=== PATIENT | male | born 1965 | race Two or more races ===

== ENCOUNTER 2022-11-23 16:45 | Inpatient (IN) | payer OTHER ==
[~2022-11-23] VITALS: Ht 182.9 cm; Wt 75.0 kg
[2022-11-23] MEDS ORDERED: MORPHINE SULFATE 4 MG/ML SYR/VIAL IV ONE (18:45)
[2022-11-23] MEDS ORDERED: ONDANSETRON ODT 4 MG TAB PO ONE (18:45)
[2022-11-23] MEDS ORDERED: SODIUM CHLORIDE 0.9% 1,000 ML IV ONE (18:45)
[2022-11-23 19:38] LABS: Basophils # (auto) 0 10 ^3/uL (0-0.2); Eosinophils # (auto) 0 10 ^3/uL (0-0.8); Lymphocytes # (auto) 0.2 10 ^3/uL (0.4-5.4); Mean Corpuscular Hgb Conc. 35.8 g/dL (32.0-36.0); Monocytes # (auto) 0.1 10 ^3/uL (0-1.3); Neutrophils # (auto) 0 10 ^3/uL (1.6-8.6); Red Cell Distribution Width 17.4 % (11.8-14.3)
[2022-11-23 19:39] LABS: Eosinophils % (auto) 0.6 % (0.0-7.0); Hematocrit 19.3 % (41.0-53.0); Mean Corpuscular Hemoglobin 35.5 pg (28.0-32.0); Mean Corpuscular Volume 99.1 fL (80.0-100.0); Neutrophils % (auto) 11.3 % (37.0-80.0); Nucleated Red Blood Cells % 0.3 %; Red Blood Cells 1.95 10^6/uL (4.5-5.90)
[2022-11-23 19:42] LABS: Lymphocytes % (auto) 68.5 % (10.0-50.0); Monocytes % (auto) 19.6 % (0.0-12.0)
[2022-11-23 19:45] LABS: Hemoglobin 6.9 g/dL (13.5-17.5); White Blood Cell 0.3 10^3/uL (4.4-10.8)
[2022-11-23 19:56] LABS: Albumin 2.1 g/dL (3.4-5.0); Calcium 7.9 mg/dL (8.5-10.1); INR 1.08 (0.9-1.15); Partial Thromboplastin Time 31.3 sec (24.6-33.4)
[2022-11-23 19:58] LABS: BUN/Creatinine Ratio 26.9 (10.0-20.0)
[2022-11-23] MEDS ORDERED: ONDANSETRON HCL 4 MG/2 ML VIAL IV ONE (20:00)
[2022-11-23 20:01] LABS: Bilirubin, Total 2.9 mg/dL (0.2-1.0); Total Protein 5.6 g/dL (6.4-8.2)
[2022-11-23 20:35] LABS: Potassium 2.8 mmol/L (3.5-5.1)
[2022-11-23] MEDS ORDERED: SOD CHL 0.9%/ KCL 40MEQ 1,000 ML IV ONE (20:45)
[2022-11-23] MEDS ORDERED: ALBUMIN 25% 100 ML IV ONE (21:15)
[2022-11-23] MEDS ORDERED: IBUPROFEN 600 MG TAB PO PRN (21:15)
[2022-11-23] MEDS ORDERED: DOCUSATE SOD 100 MG CAP PO PRN (21:15)
[2022-11-23] MEDS: MORPHINE SULFATE INJ 2 MG/ml SYRG IV PRN (21:55)
[2022-11-23] MEDS: SODIUM CHLORIDE 0.9% 1,000 ML IV SCH (21:56)
[2022-11-23 22:00] LABS: Urine Bacteria NONE SEEN /hpf (None Seen); Urine Blood Negative /uL (Negative); Urine WBC 1 /hpf (0 - 3)
[2022-11-23] MEDS ORDERED: NITROGLYCERIN 0.4 MG SL TAB SL PRN (23:30)
[2022-11-23] MEDS ORDERED: MORPHINE SULFATE INJ 2 MG/ml SYRG IV PRN (23:30)
[2022-11-24 00:24] VITALS: BP 98/49
[2022-11-24 00:39] VITALS: BP 111/63
[2022-11-24] MEDS: ONDANSETRON HCL 4 MG/2 ML VIAL IV PRN ×3 (02:05→12:26)
[2022-11-24] MEDS: MORPHINE SULFATE INJ 2 MG/ml SYRG IV PRN ×2 (02:06→05:56)
[2022-11-24 03:04] VITALS: BP 91/43
[2022-11-24 05:31] LABS: Basophils # (auto) 0 10 ^3/uL (0-0.2); Basophils % (auto) 0.8 % (0.0-2.0); Eosinophils # (auto) 0 10 ^3/uL (0-0.8); Eosinophils % (auto) 1.4 % (0.0-7.0); Hemoglobin 7.1 g/dL (13.5-17.5); Lymphocytes # (auto) 0.4 10 ^3/uL (0.4-5.4); Mean Corpuscular Hemoglobin 34.7 pg (28.0-32.0); Mean Corpuscular Hgb Conc. 35.6 g/dL (32.0-36.0); Mean Corpuscular Volume 97.3 fL (80.0-100.0); Monocytes # (auto) 0.1 10 ^3/uL (0-1.3); Neutrophils # (auto) 0 10 ^3/uL (1.6-8.6); Neutrophils % (auto) 4.8 % (37.0-80.0); Red Blood Cells 2.05 10^6/uL (4.5-5.90); Red Cell Distribution Width 17.8 % (11.8-14.3)
[2022-11-24 05:33] LABS: Lymphocytes % (auto) 70.4 % (10.0-50.0); Monocytes % (auto) 22.6 % (0.0-12.0)
[2022-11-24 05:37] LABS: White Blood Cell 0.5 10^3/uL (4.4-10.8)
[2022-11-24 05:48] LABS: Albumin 2.3 g/dL (3.4-5.0); Calcium 7.3 mg/dL (8.5-10.1); Potassium 3.1 mmol/L (3.5-5.1)
[2022-11-24 05:51] LABS: BUN/Creatinine Ratio 28.6 (10.0-20.0); Bilirubin, Total 2.2 mg/dL (0.2-1.0); Total Protein 5.1 g/dL (6.4-8.2)
[2022-11-24] MEDS ORDERED: MORPHINE SULFATE 4 MG/ML SYR/VIAL IV PRN (09:00)
[2022-11-24] MEDS: MORPHINE SULFATE 4 MG/ML SYR/VIAL IV PRN ×5 (09:27→22:40)
[2022-11-24] MEDS: FILGRASTIM(TBO) 480 MCG/0.8 ML SYRG SC SCH (09:29)
[2022-11-24] MEDS: SODIUM CHLORIDE 0.9% 1,000 ML IV SCH (14:58)
[2022-11-24 22:00] VITALS: BP 115/67
[2022-11-25] MEDS: ONDANSETRON HCL 4 MG/2 ML VIAL IV PRN ×2 (02:02→06:12)
[2022-11-25] MEDS: MORPHINE SULFATE 4 MG/ML SYR/VIAL IV PRN ×7 (02:12→22:16)
[2022-11-25 05:00] VITALS: BP 114/67
[2022-11-25 05:24] LABS: Hemoglobin 7.8 g/dL (13.5-17.5)
[2022-11-25 05:27] LABS: Hematocrit 21.9 % (41.0-53.0); Mean Corpuscular Hemoglobin 34.6 pg (28.0-32.0); Mean Corpuscular Hgb Conc. 35.7 g/dL (32.0-36.0); Mean Corpuscular Volume 96.8 fL (80.0-100.0); Red Blood Cells 2.26 10^6/uL (4.5-5.90); Red Cell Distribution Width 18.3 % (11.8-14.3)
[2022-11-25 05:34] LABS: Albumin 2.2 g/dL (3.4-5.0); Calcium 7.4 mg/dL (8.5-10.1)
[2022-11-25 05:37] LABS: Bilirubin, Total 2.3 mg/dL (0.2-1.0); Total Protein 5.4 g/dL (6.4-8.2)
[2022-11-25 06:18] LABS: Band Neutrophils % (manual) 0; Basophils % (manual) 0 (0.0-2.0); Blast Cells 0; Metamyelocytes % 0; Myelocytes % 0; Promyelocytes % 0; Reactive Lymphocytes 0
[2022-11-25] MEDS: SODIUM CHLORIDE 0.9% 1,000 ML IV SCH ×2 (06:35→20:49)
[2022-11-25 07:39] LABS: Potassium 2.7 mmol/L (3.5-5.1)
[2022-11-25] MEDS ORDERED: POTASSIUM CHL 20 Meq TABLET PO ONE (08:30)
[2022-11-25 09:00] VITALS: BP 102/54
[2022-11-25] MEDS ORDERED: VANCOMYCIN PER PHARMACY 0 MG IV SCH (09:00)
[2022-11-25 09:13] LABS: Eosinophils % (manual) 6 (0-7); Lymphocytes % (manual) 66 (10.0-50.0); Monocytes % (manual) 16 (0-12)
[2022-11-25] MEDS ORDERED: VANCOMYCIN 1GM/250ML 250 ML IV ONE (09:30)
[2022-11-25] MEDS: FILGRASTIM(TBO) 480 MCG/0.8 ML SYRG SC SCH (09:33)
[2022-11-25 12:34] VITALS: BP 102/53
[2022-11-25] MEDS ORDERED: EMPA1TAB PO (13:08)
[2022-11-25] MEDS ORDERED: LORA-1123 PO (13:08)
[2022-11-25] MEDS ORDERED: OXY5T PO (13:08)
[2022-11-25] MEDS ORDERED: METR-344 PO (13:08)
[2022-11-25] MEDS ORDERED: CEFU500T43 PO (13:08)
[2022-11-25] MEDS ORDERED: SODIGRA31 PO (13:08)
[2022-11-25] MEDS ORDERED: ZOFR4T PO (13:08)
[2022-11-25] MEDS ORDERED: GASTROGRAFIN 30 ML SOL ONE (13:51)
[2022-11-25] MEDS: CEFEPIME 1GM/ 50ML 50 ML IV SCH ×2 (15:11→22:16)
[2022-11-25 17:16] VITALS: BP 102/45
[2022-11-25] MEDS ORDERED: IOHEXOL 300 MG/ML 100ML BOTTLE IJ ONE (17:52)
[2022-11-25] MEDS: VANCOMYCIN 1GM/250ML 250 ML IV SCH (20:49)
[2022-11-25 22:00] VITALS: BP 100/55
[2022-11-26] MEDS: MORPHINE SULFATE 4 MG/ML SYR/VIAL IV PRN ×5 (01:16→20:48)
[2022-11-26 05:00] VITALS: BP 93/56
[2022-11-26 05:23] LABS: Calcium 7.2 mg/dL (8.5-10.1)
[2022-11-26 05:25] LABS: BUN/Creatinine Ratio 13.6 (10.0-20.0)
[2022-11-26 05:32] LABS: White Blood Cell 5.1 10^3/uL (4.4-10.8)
[2022-11-26 05:38] LABS: Hematocrit 25.4 % (41.0-53.0); Hemoglobin 9.2 g/dL (13.5-17.5); Mean Corpuscular Hemoglobin 34.8 pg (28.0-32.0); Mean Corpuscular Hgb Conc. 36.1 g/dL (32.0-36.0); Mean Corpuscular Volume 96.4 fL (80.0-100.0); Red Blood Cells 2.63 10^6/uL (4.5-5.90); Red Cell Distribution Width 18.2 % (11.8-14.3)
[2022-11-26] MEDS: CEFEPIME 1GM/ 50ML 50 ML IV SCH ×3 (05:41→20:48)
[2022-11-26 05:55] LABS: Basophils % (manual) 0 (0.0-2.0); Blast Cells 0; Eosinophils % (manual) 0 (0-7); Metamyelocytes % 0; Myelocytes % 0; Promyelocytes % 0; Reactive Lymphocytes 0
[2022-11-26 06:23] LABS: Potassium 2.5 mmol/L (3.5-5.1)
[2022-11-26] MEDS ORDERED: POTASSIUM CHL 20 Meq TABLET PO ONE (07:00)
[2022-11-26] MEDS ORDERED: POTASSIUM CHL 20MEQ/100ML 100 ML IV ONE (07:00)
[2022-11-26 08:20] LABS: Band Neutrophils % (manual) 13; Lymphocytes % (manual) 8 (10.0-50.0); Monocytes % (manual) 12 (0-12)
[2022-11-26] MEDS ORDERED: HYDROcodone-ACET 5/325MG TAB PO PRN (08:30)
[2022-11-26] MEDS: VANCOMYCIN 1GM/250ML 250 ML IV SCH (08:58)
[2022-11-26] MEDS: FILGRASTIM(TBO) 480 MCG/0.8 ML SYRG SC SCH (08:59)
[2022-11-26 09:06] VITALS: BP 98/67
[2022-11-26 12:34] VITALS: BP 96/76
[2022-11-26 13:48] VITALS: BP 80/44
[2022-11-26] MEDS: SODIUM CHLORIDE 0.9% 1,000 ML IV SCH ×2 (14:00→21:53)
[2022-11-26 16:45] VITALS: BP 93/59
[2022-11-26 21:42] VITALS: BP 100/65
[2022-11-27] MEDS: MORPHINE SULFATE 4 MG/ML SYR/VIAL IV PRN ×7 (00:11→22:44)
[2022-11-27 04:49] LABS: Basophils % (manual) 0 (0.0-2.0); Blast Cells 0; Eosinophils % (manual) 0 (0-7); Promyelocytes % 0; Reactive Lymphocytes 0
[2022-11-27 04:53] LABS: Hematocrit 28.6 % (41.0-53.0); Hemoglobin 9.9 g/dL (13.5-17.5); Mean Corpuscular Hemoglobin 33.8 pg (28.0-32.0); Mean Corpuscular Hgb Conc. 34.5 g/dL (32.0-36.0); Mean Corpuscular Volume 97.9 fL (80.0-100.0); Red Blood Cells 2.92 10^6/uL (4.5-5.90); Red Cell Distribution Width 18.8 % (11.8-14.3); White Blood Cell 25.4 10^3/uL (4.4-10.8)
[2022-11-27 05:00] VITALS: BP 116/70
[2022-11-27 05:14] LABS: BUN/Creatinine Ratio 13.2 (10.0-20.0); Calcium 7.5 mg/dL (8.5-10.1); Potassium 3.1 mmol/L (3.5-5.1)
[2022-11-27 05:18] LABS: Magnesium 0.7 mg/dL (1.6-2.6)
[2022-11-27 05:33] LABS: Band Neutrophils % (manual) 14; Lymphocytes % (manual) 8 (10.0-50.0); Metamyelocytes % 2; Monocytes % (manual) 5 (0-12); Myelocytes % 4
[2022-11-27] MEDS: CEFEPIME 1GM/ 50ML 50 ML IV SCH ×3 (06:05→21:33)
[2022-11-27] MEDS: SODIUM CHLORIDE 0.9% 1,000 ML IV SCH ×2 (06:06→15:55)
[2022-11-27] MEDS ORDERED: POTASSIUM CHL 20 Meq TABLET PO ONE (08:45)
[2022-11-27] MEDS: MAGNESIUM SULFATE 1GM/100ML 100 ML IV SCH ×2 (09:20→12:18)
[2022-11-27 12:00] VITALS: BP 127/72
[2022-11-27] MEDS: MAGNESIUM OXIDE 400 MG TAB PO SCH ×2 (12:24→21:33)
[2022-11-27 16:00] VITALS: BP 148/77
[2022-11-27 22:00] VITALS: BP 137/77
[2022-11-28] MEDS: MORPHINE SULFATE 4 MG/ML SYR/VIAL IV PRN ×7 (01:55→21:15)
[2022-11-28 05:00] VITALS: BP 138/89
[2022-11-28] MEDS: CEFEPIME 1GM/ 50ML 50 ML IV SCH ×3 (05:02→21:15)
[2022-11-28] MEDS: SODIUM CHLORIDE 0.9% 1,000 ML IV SCH ×2 (05:04→16:00)
[2022-11-28 06:35] LABS: Calcium 7.6 mg/dL (8.5-10.1); Magnesium 1.4 mg/dL (1.6-2.6); Potassium 3.2 mmol/L (3.5-5.1)
[2022-11-28 06:38] LABS: BUN/Creatinine Ratio 19.1 (10.0-20.0); Hematocrit 27.5 % (41.0-53.0); Hemoglobin 9.4 g/dL (13.5-17.5); Mean Corpuscular Hemoglobin 33.7 pg (28.0-32.0); Mean Corpuscular Hgb Conc. 34.3 g/dL (32.0-36.0); Mean Corpuscular Volume 98.2 fL (80.0-100.0)
[2022-11-28 07:09] LABS: White Blood Cell 38.9 10^3/uL (4.4-10.8)
[2022-11-28 07:11] LABS: Basophils % (manual) 0 (0.0-2.0); Eosinophils % (manual) 0 (0-7); Metamyelocytes % 0; Myelocytes % 0; Promyelocytes % 0; Reactive Lymphocytes 0
[2022-11-28 07:56] LABS: Band Neutrophils % (manual) 9; Blast Cells 1; Lymphocytes % (manual) 10 (10.0-50.0); Monocytes % (manual) 11 (0-12)
[2022-11-28] MEDS: MAGNESIUM OXIDE 400 MG TAB PO SCH ×2 (08:28→21:15)
[2022-11-28] MEDS ORDERED: POTASSIUM CHL 20 Meq TABLET PO ONE (08:30)
[2022-11-28] MEDS: MAGNESIUM SULFATE 1GM/100ML 100 ML IV SCH ×2 (08:45→11:42)
[2022-11-28 12:00] VITALS: BP 134/79
[2022-11-28 16:00] VITALS: BP 138/74
[2022-11-29] VITALS (7 sets, daily range): BP systolic 113–155; BP diastolic 69–82
[2022-11-29] MEDS: MORPHINE SULFATE 4 MG/ML SYR/VIAL IV PRN ×6 (00:14→15:51)
[2022-11-29] MEDS: SODIUM CHLORIDE 0.9% 1,000 ML IV SCH ×3 (01:21→21:47)
[2022-11-29 05:57] LABS: Calcium 7.6 mg/dL (8.5-10.1); Magnesium 1.7 mg/dL (1.6-2.6); Potassium 3.6 mmol/L (3.5-5.1)
[2022-11-29] MEDS: CEFEPIME 1GM/ 50ML 50 ML IV SCH ×3 (06:07→21:45)
[2022-11-29 06:19] LABS: Hemoglobin 9.5 g/dL (13.5-17.5)
[2022-11-29 06:22] LABS: Red Blood Cells 2.79 10^6/uL (4.5-5.90); Red Cell Distribution Width 19.6 % (11.8-14.3)
[2022-11-29 07:08] LABS: White Blood Cell 38.8 10^3/uL (4.4-10.8)
[2022-11-29 07:09] LABS: Basophils % (manual) 0 (0.0-2.0); Blast Cells 0; Eosinophils % (manual) 0 (0-7); Metamyelocytes % 0; Monocytes % (manual) 0 (0-12); Myelocytes % 0; Promyelocytes % 0; Reactive Lymphocytes 0
[2022-11-29 08:51] LABS: Band Neutrophils % (manual) 9; Lymphocytes % (manual) 19 (10.0-50.0)
[2022-11-29] MEDS ORDERED: MAGN400T40 PO (10:33)
[2022-11-29] MEDS ORDERED: PERCOT PO (10:33)
[2022-11-29] MEDS ORDERED: MORP-110 PO (10:33)
[2022-11-29] MEDS ORDERED: POTA1TAB4 PO (10:33)
[2022-11-29] MEDS ORDERED: SODIGRA31 PO (10:33)
[2022-11-29] MEDS: MAGNESIUM OXIDE 400 MG TAB PO SCH ×2 (11:04→21:43)
[2022-11-29] MEDS ORDERED: MORPHINE SULFATE 10 MG/5 ML ORAL SOLN PO PRN (19:00)
[2022-11-29] MEDS: MORPHINE SULF 30 mg ER tab PO SCH (19:07)
[2022-11-29] MEDS: OXYCODONE W/ ACETAMINOPHEN 5/325MG TABLET PO PRN ×2 (19:47→23:50)
[2022-11-29] MEDS: ONDANSETRON HCL 4 MG/2 ML VIAL IV PRN (19:54)
[2022-11-29] MEDS ORDERED: MORPHINE SULF 30 mg ER tab PO SCH (22:00)
[2022-11-30] VITALS (8 sets, daily range): BP systolic 101–123; BP diastolic 62–76
[2022-11-30] MEDS: OXYCODONE W/ ACETAMINOPHEN 5/325MG TABLET PO PRN ×5 (04:00→22:31)
[2022-11-30] MEDS: CEFEPIME 1GM/ 50ML 50 ML IV SCH ×3 (05:59→22:31)
[2022-11-30] MEDS: MORPHINE SULF 30 mg ER tab PO SCH ×2 (06:56→18:54)
[2022-11-30] MEDS: SODIUM CHLORIDE 0.9% 1,000 ML IV SCH ×2 (08:00→18:15)
[2022-11-30] MEDS: ONDANSETRON HCL 4 MG/2 ML VIAL IV PRN ×4 (08:22→23:47)
[2022-11-30] MEDS: MAGNESIUM OXIDE 400 MG TAB PO SCH ×2 (11:06→22:31)
[2022-12-01] MEDS: OXYCODONE W/ ACETAMINOPHEN 5/325MG TABLET PO PRN ×2 (02:21→08:25)
[2022-12-01] MEDS: SODIUM CHLORIDE 0.9% 1,000 ML IV SCH (04:00)
[2022-12-01] MEDS: CEFEPIME 1GM/ 50ML 50 ML IV SCH ×2 (04:58→07:09)
[2022-12-01 05:00] VITALS: BP 117/64
[2022-12-01] MEDS: MORPHINE SULF 30 mg ER tab PO SCH (07:09)
[2022-12-01 08:00] VITALS: BP 144/86
[2022-12-01] MEDS: ONDANSETRON HCL 4 MG/2 ML VIAL IV PRN (09:12)
[2022-12-01 09:18] LABS: Hematocrit 27.7 % (41.0-53.0); Hemoglobin 9.5 g/dL (13.5-17.5); Mean Corpuscular Hemoglobin 33.6 pg (28.0-32.0); Mean Corpuscular Hgb Conc. 34.3 g/dL (32.0-36.0); Mean Corpuscular Volume 97.9 fL (80.0-100.0); Red Blood Cells 2.84 10^6/uL (4.5-5.90)
[2022-12-01 09:24] LABS: White Blood Cell 38.5 10^3/uL (4.4-10.8)
[2022-12-01 09:25] LABS: Basophils % (manual) 0 (0.0-2.0); Blast Cells 0; Eosinophils % (manual) 0 (0-7); Metamyelocytes % 0; Myelocytes % 0; Promyelocytes % 0; Reactive Lymphocytes 0
[2022-12-01 09:43] LABS: Albumin 1.9 g/dL (3.4-5.0); Calcium 7.5 mg/dL (8.5-10.1); Magnesium 1.7 mg/dL (1.6-2.6); Potassium 3.5 mmol/L (3.5-5.1)
[2022-12-01 09:48] LABS: BUN/Creatinine Ratio 32.7 (10.0-20.0); Bilirubin, Total 1.8 mg/dL (0.2-1.0)
[2022-12-01] MEDS: MAGNESIUM OXIDE 400 MG TAB PO SCH (09:54)
[2022-12-01 10:00] LABS: Band Neutrophils % (manual) 13; Lymphocytes % (manual) 3 (10.0-50.0); Monocytes % (manual) 4 (0-12)
[2022-12-01] MEDS ORDERED: SODIUM CHLORIDE 1 GM TAB PO ONE (10:00)
== END 2022-12-01 10:35 | disposition home health service (06) | DRG 808 ==
LOC: EDBD 16:45 → ER 16:45 → TELE 23:19 → TELE-CENTR 11-24 22:18
PROVIDERS: ADMIT Nurse Practitioner Family; ATTEND Internal Medicine Geriatric Medicine
PROC: 30233N1 Transfusion of Nonautologous Red Blood Cells into Peripheral Vein, Percutaneous Approach (ICD-10-PCS; principal; 2022-11-24)
DX: D61.818 Other pancytopenia (principal); E43 Unspecified severe protein-calorie malnutrition; C23 Malignant neoplasm of gallbladder; E87.1 Hypo-osmolality and hyponatremia; E11.9 Type 2 diabetes mellitus without complications; E87.6 Hypokalemia; G89.3 Neoplasm related pain (acute) (chronic); R26.81 Unsteadiness on feet; R79.89 Other specified abnormal findings of blood chemistry; E86.0 Dehydration; R50.81 Fever presenting with conditions classified elsewhere; Z85.51 Personal history of malignant neoplasm of bladder; Z85.09 Personal history of malignant neoplasm of other digestive organs; Z68.21 Body mass index [BMI] 21.0-21.9, adult; Z92.21 Personal history of antineoplastic chemotherapy; D70.9 Neutropenia, unspecified
CPT/HCPCS: 36415; 36430; 70450; 71045; 74177; 80048; 80053; 81001; 83735; 83880; 84484; 85007; 85025; 85027; 85045; 85610; 85730; 86850; 86900; 86901; 86920; 87040; 87081; 93005; 96361; 96374; 96375; 97110; 97116; G0378; J1447; J2405; J3480; P9047

== ENCOUNTER 2022-12-04 18:37 | Inpatient (IN) | payer OTHER ==
[~2022-12-04] VITALS: Ht 185.4 cm; Wt 86.4 kg
[~2022-12-04 18:37] MED LIST: CEFU500T43 PO; EMPA1TAB PO; LORA-1123 PO; MAGN400T40 PO; METR-344 PO; MORP-110 PO; OXY5T PO; PERCOT PO; POTA1TAB4 PO; SODIGRA31 PO; ZOFR4T PO
[2022-12-04] MEDS ORDERED: SODIUM CHLORIDE 0.9% 1,000 ML IV ONE (18:45)
[2022-12-04] MEDS ORDERED: NALOXONE HCL 1MG/ML 2ML SYRINGE IV ONE (18:45)
[2022-12-04 19:14] LABS: Hematocrit 28.1 % (41.0-53.0); Hemoglobin 9.4 g/dL (13.5-17.5); Mean Corpuscular Hemoglobin 33.6 pg (28.0-32.0); Mean Corpuscular Hgb Conc. 33.4 g/dL (32.0-36.0); Mean Corpuscular Volume 100.7 fL (80.0-100.0); Red Blood Cells 2.79 10^6/uL (4.5-5.90); Red Cell Distribution Width 19.9 % (11.8-14.3); White Blood Cell 28.6 10^3/uL (4.4-10.8)
[2022-12-04 19:29] LABS: Basophils % (manual) 0 (0.0-2.0); Blast Cells 0; Eosinophils % (manual) 0 (0-7); Metamyelocytes % 0; Myelocytes % 0; Promyelocytes % 0; Reactive Lymphocytes 0
[2022-12-04 19:35] LABS: Albumin 1.5 g/dL (3.4-5.0); Anion Gap 13 (5-15); Blood Urea Nitrogen 60 mg/dL (7-18); Calcium 7.2 mg/dL (8.5-10.1); Carbon Dioxide 27 mmol/L (21-32); Chloride 86 mmol/L (98-107); Glucose 257 mg/dL (74-106); Magnesium 3.1 mg/dL (1.6-2.6); Potassium 4.8 mmol/L (3.5-5.1); Sodium 126 mmol/L (136-145)
[2022-12-04 19:40] LABS: Alanine Aminotransferase 80 U/L (16-61); Alkaline Phosphatase 681 U/L (45-117); Aspartate Aminotransferase 198 U/L (15-37); Bilirubin, Total 6.4 mg/dL (0.2-1.0); Blood Alcohol < 3.0 mg/dL (0-5); GFR African American 31 mL/min; GFR Non-African American 26 mL/min; Total Protein 3.9 g/dL (6.4-8.2)
[2022-12-04 19:48] LABS: Band Neutrophils % (manual) 18; Lymphocytes % (manual) 4 (10.0-50.0); Monocytes % (manual) 2 (0-12)
[2022-12-04] MEDS ORDERED: NOREPINEPHRINE 8 MG/250ML KIT 250 ML IV ONE (19:49)
[2022-12-04] MEDS: NOREPINEPHRINE 8 MG/250ML KIT 250 ML IV SCH (19:55)
[2022-12-04] MEDS ORDERED: PIPERACILLIN-TAZOB 3.375GM 100 ML IV ONE (20:00)
[2022-12-04 20:21] LABS: INR 1.2 (0.9-1.15); Partial Thromboplastin Time 34.3 sec (24.6-33.4)
[2022-12-04 20:42] LABS: Lactic Acid w/Reflex 7.6 mmol/L (0.4-2.0)
[2022-12-04] MEDS ORDERED: SODIUM CHLORIDE 0.9% 2,000 ML IV ONE (21:30)
[2022-12-04] MEDS ORDERED: CLINDAMYCIN 900MG IV 50 ML IV ONE (22:00)
[2022-12-04] MEDS ORDERED: IOHEXOL 350 MG/ML 100ML IJ ONE (22:42)
[2022-12-04 23:13] LABS: Urine Amorphous Crystal FEW /hpf (None Seen); Urine Bacteria NONE SEEN /hpf (None Seen); Urine Blood 2+ /uL (Negative); Urine Specific Gravity 1.024 (1.001-1.035); Urine WBC 35 /hpf (0 - 3); Urine WBC Clumps PRESENT /hpf (None Seen)
[2022-12-04 23:27] LABS: Alcohol, Urine < 3.0 mg/dL (0-10); Amphetamine Screen, Urine NEGATIVE (NEGATIVE); Barbiturate Scree,Urine NEGATIVE (NEGATIVE); Benzodiazephine Screen, Urine NEGATIVE (NEGATIVE); Cannabinoid Screen, Urine POSITIVE (NEGATIVE); Cocaine Screen, Urine NEGATIVE (NEGATIVE)
[2022-12-04 23:35] LABS: Opiate Scree,Urine POSITIVE (NEGATIVE); Phencyclidine Screen, Urine NEGATIVE (NEGATIVE)
[2022-12-05] VITALS (11 sets, daily range): BP systolic 91–109; BP diastolic 57–70
[2022-12-05] MEDS ORDERED: SODIUM CHLORIDE 0.9% 1,000 ML IV SCH (06:15)
[2022-12-05] MEDS ORDERED: NITROGLYCERIN 0.4 MG SL TAB SL PRN (06:15)
[2022-12-05] MEDS ORDERED: MORPHINE SULFATE INJ 2 MG/ml SYRG IV PRN (06:15)
[2022-12-05] MEDS ORDERED: DEXTROSE (50%) 50ML SYRG IV PRN (06:30)
[2022-12-05] MEDS ORDERED: cefTRIAXone 1GM/50ML D5W 50 ML IV SCH (07:00)
[2022-12-05] MEDS: ALBUMIN 25% 50 ML IV SCH ×2 (07:47→14:51)
[2022-12-05] MEDS ORDERED: AZITHROMYCIN 500MG/ 250ML 250 ML IV SCH (08:00)
[2022-12-05] MEDS: LACTULOSE 20Gm/30ML SOLN PO SCH ×2 (10:47→22:00)
[2022-12-05] MEDS: ACCU-CHEK COMFORT CURVE STRIP VI SCH ×2 (11:53→18:54)
[2022-12-05] MEDS: InsuLIN REG 1unit/0.01ml Soln (100units/ml) SC SCH ×2 (11:59→18:53)
[2022-12-05] MEDS: Ensure HIGH Protein Chocolate 8oz Bottle PO SCH ×2 (13:08→19:55)
[2022-12-05] MEDS: NOREPINEPHRINE 8 MG/250ML KIT 250 ML IV SCH (14:52)
[2022-12-05] MEDS ORDERED: CEFEPIME 2 GM in SODIUM CHL 0.9% 50 ML IV SCH (16:00)
[2022-12-05] MEDS: CEFEPIME 2GM/50ML NS 50 ML IV SCH (16:22)
[2022-12-05] MEDS: FUROSEMIDE 40 MG/4 ML VIAL IV SCH (18:53)
[2022-12-05] MEDS: LINEZOLID 600MG/300ML 300 ML IV SCH (20:40)
[2022-12-06] VITALS (95 sets, daily range): BP systolic 83–113; BP diastolic 42–75
[2022-12-06] MEDS: ALBUMIN 25% 50 ML IV SCH (01:26)
[2022-12-06] MEDS ORDERED: ALBUMIN 25% 50 ML IV ONE (01:26)
[2022-12-06] MEDS: ACCU-CHEK COMFORT CURVE STRIP VI SCH ×4 (01:27→18:05)
[2022-12-06] MEDS: InsuLIN REG 1unit/0.01ml Soln (100units/ml) SC SCH ×4 (01:44→18:14)
[2022-12-06] MEDS: CEFEPIME 2GM/50ML NS 50 ML IV SCH ×2 (01:54→17:00)
[2022-12-06 04:38] LABS: Hematocrit 26.2 % (41.0-53.0); Hemoglobin 9.2 g/dL (13.5-17.5); Mean Corpuscular Hemoglobin 34.2 pg (28.0-32.0)
[2022-12-06 04:40] LABS: Mean Corpuscular Hgb Conc. 35.2 g/dL (32.0-36.0); Mean Corpuscular Volume 97.2 fL (80.0-100.0); Red Blood Cells 2.69 10^6/uL (4.5-5.90); Red Cell Distribution Width 19.3 % (11.8-14.3); White Blood Cell 13.7 10^3/uL (4.4-10.8)
[2022-12-06 04:50] LABS: Basophils % (manual) 0 (0.0-2.0); Blast Cells 0; Eosinophils % (manual) 0 (0-7); Metamyelocytes % 0; Promyelocytes % 0; Reactive Lymphocytes 0
[2022-12-06 04:52] LABS: Calcium 7.1 mg/dL (8.5-10.1); Magnesium 2.8 mg/dL (1.6-2.6); Potassium 4.7 mmol/L (3.5-5.1)
[2022-12-06 04:55] LABS: Bilirubin, Total 7.8 mg/dL (0.2-1.0); Total Protein 4.7 g/dL (6.4-8.2)
[2022-12-06] MEDS: LINEZOLID 600MG/300ML 300 ML IV SCH ×2 (05:58→18:12)
[2022-12-06] MEDS: Ensure HIGH Protein Chocolate 8oz Bottle PO SCH ×3 (08:00→18:00)
[2022-12-06] MEDS ORDERED: SODIUM CHLORIDE 0.9% 500 ML IV ONE (08:15)
[2022-12-06] MEDS: FUROSEMIDE 40 MG/4 ML VIAL IV SCH (09:02)
[2022-12-06] MEDS: LACTULOSE 20Gm/30ML SOLN PO SCH ×2 (09:02→22:09)
[2022-12-06] MEDS: SODIUM CHLORIDE 0.9% 1,000 ML IV SCH ×2 (09:06→16:15)
[2022-12-06 09:43] LABS: Band Neutrophils % (manual) 2; Lymphocytes % (manual) 9 (10.0-50.0); Monocytes % (manual) 5 (0-12); Myelocytes % 1
[2022-12-06] MEDS: OCTREOTIDE ACETATE 100 MCG/ML VL SUBCUT SCH ×2 (13:10→22:10)
[2022-12-06] MEDS: ONDANSETRON HCL 4 MG/2 ML VIAL IV PRN ×2 (13:10→22:10)
[2022-12-06] MEDS: NOREPINEPHRINE 8 MG/250ML KIT 250 ML IV SCH (18:05)
[2022-12-06] MEDS: MORPHINE SULFATE INJ 2 MG/ml SYRG IV PRN (18:29)
[2022-12-07] VITALS (86 sets, daily range): BP systolic 77–136; BP diastolic 45–81
[2022-12-07] MEDS: SODIUM CHLORIDE 0.9% 1,000 ML IV SCH ×2 (00:39→12:13)
[2022-12-07] MEDS: MORPHINE SULFATE INJ 2 MG/ml SYRG IV PRN ×2 (00:40→22:20)
[2022-12-07] MEDS: LINEZOLID 600MG/300ML 300 ML IV SCH ×2 (03:47→16:23)
[2022-12-07 04:34] LABS: Hematocrit 25.2 % (41.0-53.0); Hemoglobin 8.7 g/dL (13.5-17.5); Mean Corpuscular Hemoglobin 33.8 pg (28.0-32.0); Mean Corpuscular Hgb Conc. 34.4 g/dL (32.0-36.0); Mean Corpuscular Volume 98.4 fL (80.0-100.0); Red Blood Cells 2.56 10^6/uL (4.5-5.90); Red Cell Distribution Width 19.6 % (11.8-14.3); White Blood Cell 19.8 10^3/uL (4.4-10.8)
[2022-12-07 04:46] LABS: Basophils % (manual) 0 (0.0-2.0); Blast Cells 0; Eosinophils % (manual) 0 (0-7); Myelocytes % 0; Promyelocytes % 0; Reactive Lymphocytes 0
[2022-12-07 04:49] LABS: INR 1.4 (0.9-1.15)
[2022-12-07] MEDS: CEFEPIME 2GM/50ML NS 50 ML IV SCH ×2 (05:53→20:00)
[2022-12-07] MEDS: ACCU-CHEK COMFORT CURVE STRIP VI SCH ×5 (05:56→23:48)
[2022-12-07] MEDS: OCTREOTIDE ACETATE 100 MCG/ML VL SUBCUT SCH ×3 (05:56→22:20)
[2022-12-07] MEDS: InsuLIN REG 1unit/0.01ml Soln (100units/ml) SC SCH ×5 (06:01→23:48)
[2022-12-07 07:59] LABS: Albumin 1.6 g/dL (3.4-5.0); BUN/Creatinine Ratio 21.4 (10.0-20.0); Bilirubin, Total 8.8 mg/dL (0.2-1.0); Calcium 7.3 mg/dL (8.5-10.1); Magnesium 2.8 mg/dL (1.6-2.6); Total Protein 4.8 g/dL (6.4-8.2)
[2022-12-07 08:03] LABS: Band Neutrophils % (manual) 11; Lymphocytes % (manual) 5 (10.0-50.0); Metamyelocytes % 1; Monocytes % (manual) 5 (0-12)
[2022-12-07] MEDS: LACTULOSE 20Gm/30ML SOLN PO SCH ×2 (08:24→22:20)
[2022-12-07] MEDS: FUROSEMIDE 40 MG/4 ML VIAL IV SCH (08:25)
[2022-12-07] MEDS: ONDANSETRON HCL 4 MG/2 ML VIAL IV PRN (08:25)
[2022-12-07 09:59] LABS: Protein, Urine 329.3 mg/dL (0.0-11.9)
[2022-12-07] MEDS: ALBUMIN 25% 50 ML IV SCH ×2 (11:56→20:53)
[2022-12-07] MEDS: Glucerna Carbsteady SHAKE Vanilla 8oz PO SCH ×2 (13:26→18:31)
[2022-12-07] MEDS: NOREPINEPHRINE 8 MG/250ML KIT 250 ML IV SCH (14:15)
[2022-12-07] MEDS: DOPamine 1600MCG/ML D5W 250 ML IV SCH (14:16)
[2022-12-07] MEDS: SODIUM CHLORIDE 1 GM TAB PO SCH ×2 (14:32→22:20)
[2022-12-07] MEDS: FUROSEMIDE INJECTION 100 MG in SODIUM CHL 0.9% 100 ML IV SCH ×3 (14:33→23:01)
[2022-12-08] VITALS (96 sets, daily range): BP systolic 79–117; BP diastolic 48–73
[2022-12-08] MEDS: MORPHINE SULFATE INJ 2 MG/ml SYRG IV PRN (03:11)
[2022-12-08 03:51] LABS: Hematocrit 25.2 % (41.0-53.0); Hemoglobin 8.6 g/dL (13.5-17.5); Mean Corpuscular Hemoglobin 33.8 pg (28.0-32.0); Mean Corpuscular Hgb Conc. 34.1 g/dL (32.0-36.0); Mean Corpuscular Volume 99.1 fL (80.0-100.0); Red Blood Cells 2.55 10^6/uL (4.5-5.90); Red Cell Distribution Width 19.8 % (11.8-14.3); White Blood Cell 19.8 10^3/uL (4.4-10.8)
[2022-12-08 04:07] LABS: INR 1.44 (0.9-1.15); Potassium 4.8 mmol/L (3.5-5.1)
[2022-12-08 04:12] LABS: Albumin 1.9 g/dL (3.4-5.0); BUN/Creatinine Ratio 20.9 (10.0-20.0); Bilirubin, Total 9.8 mg/dL (0.2-1.0); Calcium 7.3 mg/dL (8.5-10.1); Magnesium 2.9 mg/dL (1.6-2.6); Total Protein 4.8 g/dL (6.4-8.2)
[2022-12-08 04:41] LABS: Basophils % (manual) 0 (0.0-2.0); Blast Cells 0; Eosinophils % (manual) 0 (0-7); Metamyelocytes % 0; Myelocytes % 0; Promyelocytes % 0; Reactive Lymphocytes 0
[2022-12-08] MEDS: ALBUMIN 25% 50 ML IV SCH (05:11)
[2022-12-08] MEDS: ACCU-CHEK COMFORT CURVE STRIP VI SCH ×4 (05:51→23:37)
[2022-12-08] MEDS: ONDANSETRON HCL 4 MG/2 ML VIAL IV PRN ×3 (05:52→21:28)
[2022-12-08] MEDS: InsuLIN REG 1unit/0.01ml Soln (100units/ml) SC SCH ×4 (05:52→23:36)
[2022-12-08] MEDS: LINEZOLID 600MG/300ML 300 ML IV SCH ×2 (05:53→16:05)
[2022-12-08] MEDS: OCTREOTIDE ACETATE 100 MCG/ML VL SUBCUT SCH ×3 (05:53→21:28)
[2022-12-08] MEDS: SODIUM CHLORIDE 1 GM TAB PO SCH ×3 (05:53→21:29)
[2022-12-08] MEDS: NOREPINEPHRINE 8 MG/250ML KIT 250 ML IV SCH (06:58)
[2022-12-08] MEDS: Glucerna Carbsteady SHAKE Vanilla 8oz PO SCH ×3 (08:20→18:00)
[2022-12-08] MEDS: CEFEPIME 2GM/50ML NS 50 ML IV SCH ×2 (08:20→20:00)
[2022-12-08] MEDS: FUROSEMIDE INJECTION 100 MG in SODIUM CHL 0.9% 100 ML IV SCH ×2 (08:31→16:05)
[2022-12-08] MEDS: LACTULOSE 20Gm/30ML SOLN PO SCH ×2 (08:35→21:28)
[2022-12-08 09:30] LABS: Band Neutrophils % (manual) 8; Lymphocytes % (manual) 12 (10.0-50.0); Monocytes % (manual) 3 (0-12)
[2022-12-08] MEDS ORDERED: HYDROmorphone HCL 2 MG/ML VL/or syr IV PRN (10:00)
[2022-12-08] MEDS: MORPHINE SULF 30 mg ER tab PO SCH ×2 (10:00→21:29)
[2022-12-08] MEDS: DOPamine 1600MCG/ML D5W 250 ML IV SCH (13:45)
[2022-12-09] VITALS (89 sets, daily range): BP systolic 70–141; BP diastolic 16–65
[2022-12-09] MEDS: NOREPINEPHRINE 8 MG/250ML KIT 250 ML IV SCH ×4 (01:35→21:24)
[2022-12-09] MEDS: DOPamine 1600MCG/ML D5W 250 ML IV SCH (01:37)
[2022-12-09] MEDS: FUROSEMIDE INJECTION 100 MG in SODIUM CHL 0.9% 100 ML IV SCH ×2 (02:56→13:35)
[2022-12-09 04:18] LABS: Albumin 1.7 g/dL (3.4-5.0); BUN/Creatinine Ratio 20.4 (10.0-20.0); Calcium 7.5 mg/dL (8.5-10.1); Magnesium 2.5 mg/dL (1.6-2.6)
[2022-12-09 04:21] LABS: Bilirubin, Total 11.1 mg/dL (0.2-1.0); Total Protein 4.8 g/dL (6.4-8.2)
[2022-12-09 05:06] LABS: Hematocrit 32.1 % (41.0-53.0); Hemoglobin 10.8 g/dL (13.5-17.5); Mean Corpuscular Hemoglobin 33.6 pg (28.0-32.0); Mean Corpuscular Hgb Conc. 33.5 g/dL (32.0-36.0); Red Blood Cells 3.21 10^6/uL (4.5-5.90); Red Cell Distribution Width 19.6 % (11.8-14.3); White Blood Cell 18.1 10^3/uL (4.4-10.8)
[2022-12-09 05:10] LABS: Basophils % (manual) 0 (0.0-2.0); Blast Cells 0; Eosinophils % (manual) 0 (0-7); Promyelocytes % 0; Reactive Lymphocytes 0
[2022-12-09] MEDS: InsuLIN REG 1unit/0.01ml Soln (100units/ml) SC SCH ×4 (06:00→21:24)
[2022-12-09] MEDS: ONDANSETRON HCL 4 MG/2 ML VIAL IV PRN ×2 (06:07→09:57)
[2022-12-09] MEDS: LINEZOLID 600MG/300ML 300 ML IV SCH (06:08)
[2022-12-09] MEDS: SODIUM CHLORIDE 1 GM TAB PO SCH (06:08)
[2022-12-09] MEDS: OCTREOTIDE ACETATE 100 MCG/ML VL SUBCUT SCH ×3 (06:08→22:32)
[2022-12-09] MEDS: ACCU-CHEK COMFORT CURVE STRIP VI SCH ×4 (06:13→21:24)
[2022-12-09] MEDS: CEFEPIME 2GM/50ML NS 50 ML IV SCH (08:07)
[2022-12-09 08:13] LABS: Band Neutrophils % (manual) 15; Lymphocytes % (manual) 2 (10.0-50.0); Metamyelocytes % 2; Monocytes % (manual) 7 (0-12); Myelocytes % 2
[2022-12-09] MEDS: Glucerna Carbsteady SHAKE Vanilla 8oz PO SCH ×3 (09:35→18:00)
[2022-12-09] MEDS: LACTULOSE 20Gm/30ML SOLN PO SCH (09:58)
[2022-12-09] MEDS: MORPHINE SULF 30 mg ER tab PO SCH (09:58)
[2022-12-09] MEDS ORDERED: DEXTROSE 10% 250 ML IV ONE (11:58)
[2022-12-09] MEDS ORDERED: DEXTROSE 10% 250 ML Bag IV ONE (12:15)
[2022-12-09] MEDS ORDERED: MICAFUNGIN SODIUM 100 MG in SODIUM CHL 0.9% 100 ML IV SCH (12:45)
[2022-12-09] MEDS ORDERED: DAPTOmycin 500 MG in SODIUM CHL 0.9% 50 ML IV SCH (12:45)
[2022-12-09] MEDS ORDERED: ALBUTEROL SULF 2.5 MG/0.5ML(0.5%) NEB SOLN NEB PRN (13:00)
[2022-12-09] MEDS ORDERED: SODIUM BICARBONATE 8.4 % INJ 50ML VIAL IV ONE (14:00)
[2022-12-09] MEDS ORDERED: SODIUM BICARBONATE 50ML VIAL 100 ML in D5W 5% 1,000 ML IV SCH (14:00)
[2022-12-09] MEDS: MORPHINE SULFATE INJ 2 MG/ml SYRG IV PRN ×4 (14:45→22:49)
[2022-12-09] MEDS: MEROPENEM 500MG IVPB 50 ML IV SCH ×2 (14:55→22:49)
[2022-12-10] VITALS: BP 101/20
[2022-12-10 00:15] VITALS: BP 100/13
[2022-12-10 00:30] VITALS: BP 87/26
[2022-12-10 00:45] VITALS: BP 93/18
[2022-12-10 01:00] VITALS: BP 95/30
[2022-12-10] MEDS: NOREPINEPHRINE 8 MG/250ML KIT 250 ML IV SCH (01:11)
[2022-12-10 01:15] VITALS: BP 79/32
[2022-12-10] MEDS ORDERED: EPINEPHrine HCL 1 MG/10 ML SYRG IV ONE (06:17)
[2022-12-10] MEDS ORDERED: SODIUM BICARBONATE 8.4% INJ 50ML SYRINGE IV ONE (06:17)
[2022-12-10] MEDS ORDERED: ATROPINE SULF 1 MG/10ml SYR IV ONE (06:17)
== END 2022-12-10 06:18 | DRG 871 ==
LOC: EDBD 18:37 → ER 18:40 → TELE 12-05 06:15 → ICU WEST 12-05 20:35
PROVIDERS: ADMIT Nurse Practitioner; ATTEND Internal Medicine Geriatric Medicine
PROC: 06HY33Z Insertion of Infusion Device into Lower Vein, Percutaneous Approach (ICD-10-PCS; principal; 2022-12-05)
DX: A41.9 Sepsis, unspecified organism (principal); E43 Unspecified severe protein-calorie malnutrition; J18.9 Pneumonia, unspecified organism; K76.7 Hepatorenal syndrome; R65.21 Severe sepsis with septic shock; G93.41 Metabolic encephalopathy; N17.9 Acute kidney failure, unspecified; E87.1 Hypo-osmolality and hyponatremia; C23 Malignant neoplasm of gallbladder; N39.0 Urinary tract infection, site not specified; D61.818 Other pancytopenia; Z20.822 Contact with and (suspected) exposure to COVID-19; Z66 Do not resuscitate; K76.82 Hepatic encephalopathy; E88.09 Other disorders of plasma-protein metabolism, not elsewhere classified; R62.7 Adult failure to thrive; N18.9 Chronic kidney disease, unspecified; E11.22 Type 2 diabetes mellitus with diabetic chronic kidney disease; D63.1 Anemia in chronic kidney disease; D70.9 Neutropenia, unspecified; R50.81 Fever presenting with conditions classified elsewhere; G89.29 Other chronic pain; Z68.25 Body mass index [BMI] 25.0-25.9, adult
CPT/HCPCS: 36415; 36600; 70450; 71045; 71250; 74176; 76775; 80053; 80307; 80320; 81001; 82140; 82306; 82570; 82805; 82962; 83605; 83735; 83880; 83935; 83970; 84100; 84156; 84300; 84484; 85007; 85027; 85379; 85610; 85730; 87040; 87077; 87081; 87086; 87186; 87426; 87804; 93005; 96361; 96365; 96366; 96367; 96375; 99291; G0378; J0692; J0696; J1815; J2185; J2248; J2405; J2543; J3490